=== PATIENT | male | born 1940 ===

== ENCOUNTER 2017-03-25 09:58 | Outpatient (CLI) | payer OTHER ==
[~2017-03-25 09:58] MED LIST: DALMANE15 MG; LAMICTAL25 MG; PROTONIX40 MG; SINGULAIR10 MG; WELLBUTRIN XL300 MG; [UNRECOGNIZED DRUG - OTHER]
== END 2017-03-25 10:06 | disposition home or self-care (01) ==
LOC: LAB 09:58
DX: D48.5 Neoplasm of uncertain behavior of skin (principal); C84.00 Mycosis fungoides, unspecified site; D51.3 Other dietary vitamin B12 deficiency anemia; E55.9 Vitamin D deficiency, unspecified; I88.0 Nonspecific mesenteric lymphadenitis; F32.89 Other specified depressive episodes; R97.0 Elevated carcinoembryonic antigen [CEA]; R97.8 Other abnormal tumor markers

== ENCOUNTER 2018-06-20 08:17 | Outpatient (CLI) | payer OTHER | END 2018-06-20 10:19 | disposition home or self-care (01) | LOC: LAB 08:17 | DX: D48.5 Neoplasm of uncertain behavior of skin (principal); C84.00 Mycosis fungoides, unspecified site; D51.3 Other dietary vitamin B12 deficiency anemia; E55.9 Vitamin D deficiency, unspecified; I88.0 Nonspecific mesenteric lymphadenitis; F32.89 Other specified depressive episodes; R97.0 Elevated carcinoembryonic antigen [CEA]; D50.8 Other iron deficiency anemias; D51.8 Other vitamin B12 deficiency anemias; I10 Essential (primary) hypertension; K90.89 Other intestinal malabsorption; E03.8 Other specified hypothyroidism; R97.20 Elevated prostate specific antigen [PSA]; R97.8 Other abnormal tumor markers ==

== ENCOUNTER 2021-08-02 08:47 | Outpatient (CLI) | payer OTHER | END 2021-08-02 08:48 | disposition home or self-care (01) | LOC: TOM 08:47 | PROVIDERS: ATTEND Internal Medicine Gastroenterology | DX: R10.11 Right upper quadrant pain (principal); R10.12 Left upper quadrant pain; M79.3 Panniculitis, unspecified | CPT/HCPCS: 74177; Q9965 ==

== ENCOUNTER 2021-12-26 08:02 | Outpatient (CLI) | payer OTHER | END 2021-12-26 08:08 | disposition home or self-care (01) | LOC: RX STUDY 08:02 | PROVIDERS: ATTEND Internal Medicine Gastroenterology | DX: K30 Functional dyspepsia (principal) ==